=== PATIENT | female | born 1980 | race Two or more races ===

== ENCOUNTER 2022-04-29 16:29 | Emergency (ER) | payer OTHER ==
[~2022-04-29] VITALS: Ht 162.6 cm; Wt 72.6 kg
[2022-04-29 16:49] VITALS: BP 128/82
[2022-04-29] MEDS ORDERED: IBUPROFEN 400 MG TABLET ONE (17:40)
[2022-04-29] MEDS ORDERED: AMOXICILLIN TRIHYDRATE 250 MG CAPSULE ONE (17:40)
[2022-04-29] MEDS: IBUPROFEN 400 MG TABLET PO ONE (17:47)
[2022-04-29] MEDS: AMOXICILLIN TRIHYDRATE 500 MG CAPSULE PO ONE (17:47)
--- NOTE | 2022-04-29 17:47 | NUR ---
MOTRIN AND AMOXICILLIN PO GIVEN INDICATED, MAX WELL
--- NOTE | 2022-04-29 17:48 | NUR ---
Patient discharged to home in stable condition. Written and verbal after care instructions given. Patient verbalizes understanding of instruction.
== END 2022-04-29 17:50 | disposition home or self-care (01) ==
LOC: ER 16:35
DX: J02.0 Streptococcal pharyngitis (principal)